=== PATIENT | female | born 1955 | race Caucasian/White ===

== ENCOUNTER 2024-12-10 23:53 | Emergency (ER) | payer MEDICARE, OTHER | END 2024-12-11 01:30 | disposition home or self-care (01) | LOC: FB.ED 23:53 | DX: S16.1XXA Strain of muscle, fascia and tendon at neck level, initial encounter (principal); S09.90XA Unspecified injury of head, initial encounter; Z91.041 Radiographic dye allergy status; Z79.899 Other long term (current) drug therapy; W01.0XXA Fall on same level from slipping, tripping and stumbling without subsequent striking against object, initial encounter | CPT/HCPCS: 70450; 72125; 82947; 99283; 99285 ==

== ENCOUNTER 2025-05-22 22:16 | Emergency (ER) | payer MEDICARE, OTHER | END 2025-05-22 23:32 | disposition home or self-care (01) | LOC: FB.ED 22:16 | DX: M19.072 Primary osteoarthritis, left ankle and foot (principal); Z91.041 Radiographic dye allergy status | CPT/HCPCS: 73610-LT; 99283 ==